=== PATIENT | female | born 1955 | race Caucasian/White ===

== ENCOUNTER → 2016-10-14 | Outpatient (CLI) | payer OTHER | LOC: BMCIMAGING 10:14 | PROVIDERS: ATTEND Orthopaedic Surgery | DX: M25.861 Other specified joint disorders, right knee (principal); M25.561 Pain in right knee ==

== ENCOUNTER → 2017-04-07 | Outpatient (CLI) | payer OTHER | LOC: FIMAGING 14:50 | PROVIDERS: ATTEND Registered Nurse | DX: N63.10 Unspecified lump in the right breast, unspecified quadrant (principal) | CPT/HCPCS: G0204 ==

== ENCOUNTER → 2017-11-16 | Outpatient (CLI) | payer OTHER | LOC: BMCLAB 13:51 | PROVIDERS: ATTEND Physician Assistant | DX: Z47.1 Aftercare following joint replacement surgery (principal); Z96.651 Presence of right artificial knee joint ==

== ENCOUNTER 2018-05-20 16:55 | Emergency (ER) | payer OTHER ==
--- NOTE | 2018-05-20 17:49 | EDPHY ---
H & P Time Seen by Provider: 05/20/18 17:21 HPI/ROS: CHIEF COMPLAINT: Mental health issues HISTORY OF PRESENT ILLNESS: The patient is a 62-year-old female with previously diagnosed schizophrenia and depression. She presents to the emergency department hearing voices and states she is having difficulty "blocking them out." Patient is currently treated by Dr. Taylor Hernandez, psychiatrist. She spoke with her on the phone 2 days ago was started on a "generic form of Abilify". The patient denies suicidal or homicidal ideation. She states she came to the emergency department today to get some medicine to help with the voices. She feels comfortable going home she received more medication. Of note, the patient is not taking Depakote. Patient is taking lithium. REVIEW OF SYSTEMS: 10 systems were reveiwed and are negative with the exception of the elements mentioned in the history of present illness. Past Medical/Surgical History: Includes schizophrenia, depression, hypothyroidism, asthma, GERD, prediabetes Past surgical history: Includes stent placement hysterectomy Social history: Patient does not smoke Smoking Status: Never smoked Physical Exam: GENERAL: Well-appearing, in no acute distress, alert. HEENT: Eyes normal to inspection, normal. NECK: Normal, supple. RESPIRATORY: Clear to auscultation bilaterally, no rales, rhonchi or wheezing. CVS: Regular rate and rhythm, no rubs, murmurs, or gallops. ABDOMEN: Soft, nontender, nondistended, no organomegaly. BACK: Normal to inspection, no CVA tenderness. SKIN: Normal color, no rash, warm, dry. No pallor. EXTREMITIES: No pedal edema, no calf tenderness, no Homans sign or cords, no joint swelling. NEURO/PSYCH: Alert and oriented, normal mood and affect, normal motor sensory exam. No obvious cranial nerve deficit. Constitutional: Initial Vital Signs Temperature (C) 36.8 C 05/20/18 16:57 Heart Rate 107 H 05/20/18 16:57 Respiratory Rate 18 05/20/18 16:57 Blood Pressure 181/107 H 05/20/18 16:57 O2 Sat (%) 94 05/20/18 16:57 O2 Delivery Mode Room Air Allergies/Adverse Reactions: Penicillins Allergy (Intermediate, Verified 05/20/18 16:56) ITCHY, THROAT SWELLS Sulfa (Sulfonamide Antibiotics) Allergy (Intermediate, Verified 05/20/18 16:56) ITCHY RASH iodine Allergy (Mild, Verified 05/20/18 16:56) skin irritation tetracycline Allergy (Mild, Verified 05/20/18 16:56) Diarrhea shellfish derived Allergy (Verified 05/20/18 16:56) MOLDS Allergy (Intermediate, Uncoded 01/21/12 11:29) HIVES, ASTHMA Home Medications: Medication Instructions Recorded ARIPIPRAZOLE [Abilify 20mg] 20 mg PO DAILY 01/29/11 Aspirin [Aspirin 325 mg] 325 mg PO DAILY 01/29/11 BENZTROPINE MESYLATE 1 mg PO BID 01/29/11 CALCIUM CITRATE 600 mg PO BID 01/29/11 Divalproex [Depakote] 500 mg PO HS 01/29/11 Fexofenadine/Pseudoephedrine 1 each PO PRN PRN 01/29/11 [Willa-D 12 Hour Tablet] LORazepam [Ativan (*)] 1 mg PO AD 01/29/11 Levothyroxine [Levothroid, 112 mcg PO DAILY@1000 01/29/11 Synthroid] Ranitidine HCl [Ranitidine HCl 150 0 mg PO DAILY 01/29/11 mg] Omeprazole Magnesium [Prilosec Otc] 20 mg PO DAILY 01/21/12 OLANZapine [Zyprexa] 5 mg PO DAILY #7 tablet 05/20/18 Medical Decision Making ED Course/Re-evaluation: In the emergency department I discussed possible etiologies with the patient. Answered all her questions. I attempted to contact her psychiatrist by phone. 18 15: I am not receive a call back from the psychiatrist. The patient was given Zyprexa 5 mg orally. She will be given a prescription of Zyprexa 5 mg daily x7 days. She will follow up with her psychiatrist at the beginning of the week. Patient was given warnings prior to leaving. She will return with worsening symptoms. Differential Diagnosis: My differential includes but is not limited to psychosis, schizophrenia, bipolar disorder depression, suicidal ideation - Data Points Medications Given: Discontinued Medications Olanzapine (Olanzapine) 5 mg PO ONCE ONE Stop: 05/20/18 17:57 Last Admin: 05/20/18 18:19 Dose: 5 mg Departure - Departure Disposition: Home, Routine, Self-Care Clinical Impression: Auditory hallucinations Condition: Good Instructions: Hallucinations (ED) Additional Instructions: Return with worsening hallucinations, thoughts of wanting to harm yourself or others or any other concerns. Referrals: Philly Sandhu MD [Primary Care Provider] - As per Instructions Taylor Hernandez [Non Staff Provider ()] - 3-4 days, if not improved Prescriptions: OLANZapine [Zyprexa] 5 mg PO DAILY #7 tablet
[2018-05-20] MEDS ORDERED: OLANZapine 5 MG TAB PO ONE (17:56)
[2018-05-20 18:37] VITALS: BP 164/110
== END 2018-05-20 19:03 | disposition home or self-care (01) ==
LOC: EEVIPCON 16:55
DX: R44.0 Auditory hallucinations (principal); F20.9 Schizophrenia, unspecified

== ENCOUNTER 2018-05-21 18:58 | Emergency (ER) | payer OTHER ==
--- NOTE | 2018-05-21 19:23 | EDPHY ---
H & P Stated Complaint: here yesterday for same c/o;"Not any better" "Still delusional " - Personal History Current Tetanus Diphtheria and Acellular Pertussis (TDAP): Yes Tetanus Vaccine Date: >10 YRS - Medical/Surgical History Hx Asthma: Yes Hx Chronic Respiratory Disease: No Hx Diabetes: Yes Hx Cardiac Disease: Yes Hx Renal Disease: No Hx Cirrhosis: No Hx Alcoholism: No Hx HIV/AIDS: No Hx Splenectomy or Spleen Trauma: No Other PMH: depression, schitzophrenia, hypothyroid, asthma, gerd, stent, pre diabetes, hysterectomy - Social History Smoking Status: Never smoked Time Seen by Provider: 05/21/18 19:22 Constitutional: Initial Vital Signs Temperature (C) 36.7 C 05/21/18 19:00 Heart Rate 84 05/21/18 19:00 Respiratory Rate 16 05/21/18 19:00 Blood Pressure 194/108 H 05/21/18 19:00 O2 Sat (%) 97 05/21/18 19:00 O2 Delivery Mode Room Air Allergies/Adverse Reactions: Penicillins Allergy (Intermediate, Verified 05/21/18 19:00) ITCHY, THROAT SWELLS Sulfa (Sulfonamide Antibiotics) Allergy (Intermediate, Verified 05/21/18 19:00) ITCHY RASH iodine Allergy (Mild, Verified 05/21/18 19:00) skin irritation tetracycline Allergy (Mild, Verified 05/21/18 19:00) Diarrhea shellfish derived Allergy (Verified 05/21/18 19:00) MOLDS Allergy (Intermediate, Uncoded 01/21/12 11:29) HIVES, ASTHMA Home Medications: Medication Instructions Recorded ARIPIPRAZOLE [Abilify 20mg] 20 mg PO DAILY 01/29/11 Aspirin [Aspirin 325 mg] 325 mg PO DAILY 01/29/11 BENZTROPINE MESYLATE 1 mg PO BID 01/29/11 CALCIUM CITRATE 600 mg PO BID 01/29/11 Divalproex [Depakote] 500 mg PO HS 01/29/11 Fexofenadine/Pseudoephedrine 1 each PO PRN PRN 01/29/11 [Willa-D 12 Hour Tablet] LORazepam [Ativan (*)] 1 mg PO AD 01/29/11 Levothyroxine [Levothroid, 112 mcg PO DAILY@1000 01/29/11 Synthroid] Ranitidine HCl [Ranitidine HCl 150 0 mg PO DAILY 01/29/11 mg] Omeprazole Magnesium [Prilosec Otc] 20 mg PO DAILY 01/21/12 OLANZapine [Zyprexa] 5 mg PO DAILY #7 tablet 05/20/18 Medical Decision Making ED Course/Re-evaluation: CHIEF COMPLAINT: Depressed and hopeless HISTORY OF PRESENT ILLNESS: 62-year-old female who was here yesterday. Had a discussion with psychiatric team. Is not feeling any better and in fact had a bit of a breakdown yesterday evening after leaving here. She is very depressed and very hopeless. She is not suicidal currently. She is not homicidal. She has had longstanding history of depression and she has suffered a traumatic brain injury years ago which may or may not be contributing. REVIEW OF SYSTEMS: A comprehensive 10 system review of systems is otherwise negative aside from elements mentioned in the history of present illness and medical decision making. PHYSICAL EXAM: General Appearance: Alert, well hydrated, appropriate, and non-toxic appearing. Head: Atraumatic without scalp tenderness or obvious injury Eyes: Pupils equal, round, reactive to light and accommodation, EOMI, no trauma , no injection. Ears: Clear bilaterally, no perforation, normal landmarks Nose: Atraumatic, no rhinorrhea, clear. Throat: There is no erythema or exudates, no lesions, normal tonsils, mucus membranes moist. Neck: Supple, 2+ carotid upstroke, nontender, no lymphadenopathy. Respiratory: No retractions, no distress, no wheezes, and no accessory muscle use. Lungs are clear to auscultation bilaterally. Cardiovascular: Regular rate and rhythm, no murmurs, rubs, or gallops. Bilateral carotid, radial, dorsalis pedis, and posterior tibial pulses intact. Good capillary refill all extremities. Gastrointestinal: Abdomen is soft, nontender, non-distended, no masses, no rebound, no guarding, no peritoneal signs. Musculoskeletal: Normal active ROM of all extremities, atraumatic. Neurological: Alert, appropriate, and interactive. The patient has normal DTRs and non-focal cranial nerves, motor, sensory, and cerebellar exam. Skin: No rashes, good turgor, no nodules on palpation. Past medical history: Depression TBI Past surgical history: Noncontributory Family history: Noncontributory Social history: , employed, does not abuse tobacco drugs or alcohol DIFFERENTIAL DIAGNOSIS: The differential diagnosis for the patient's depression included but was not limited to functional and major depression, situational depression, medication side effect, drugs, and alcohol abuse. MEDICAL DECISION MAKING: Patient is in no acute distress and is hemodynamically stable. We are awaiting psychiatric team's evaluation. Patient has known history of psychiatric disorders and is here for evaluation. (Rory Gonzalez) Patient was signed out to me at change of shift. I spoke with Psychiatric Services. They felt the patient was safe for discharge. They will give her follow-up information. The patient felt comfortable this plan. Prior to receiving the patient discharge paperwork she wanted to be discharged. She left without her paperwork. (Yuli Wise) Departure - Departure Disposition: Home, Routine, Self-Care Clinical Impression: Schizophrenia Qualifiers: Schizophrenia type: unspecified Qualified Code(s): F20.9 - Schizophrenia, unspecified Condition: Good Instructions: Schizophrenia (ED), Hallucinations (ED) Referrals: Taylor Hernandez [Non Staff Provider (MD)] - 1-2 days without fail
[2018-05-21 21:37] VITALS: BP 176/104
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
--- NOTE | 2018-05-21 22:05 | ASMTTCLDSP ---
TLC Discharge Disposition Disposition: Answers: Discharge If Answers: Yes DISCHARGED: Patient/family given suicide hotline info & SAMHSA brochure? Disposition Notes: Notes: Pt will follow up with her psychiatrist on 06/05/17. Pt will also make an appt with her PCP. Discharge Concerns/Recommendations: Notes: In consultation with [facility] ED physician, Yuli Wise MD, concurred that pt does not appear to meet 27-65 criteria requiring psychiatric hospitalization as pt does not appear to be an imminent risk of harm to self/others/gravely disabled due to a mental illness condition. Date Signed: 05/21/2018 10:05 PM Electronically Signed By:Nataly Corona
== END 2018-05-21 22:33 | disposition home or self-care (01) ==
DX: F20.9 Schizophrenia, unspecified (principal)

== ENCOUNTER 2018-05-23 02:51 | Emergency (ER) | payer OTHER ==
[2018-05-23] MEDS ORDERED: NS 1,000 ML IV ONE (03:16)
--- NOTE | 2018-05-23 03:16 | EDPHY ---
H & P Stated Complaint: c/o L lower back pain/nausea/difficult urination starting tonight Time Seen by Provider: 05/23/18 03:16 HPI/ROS: HPI CHIEF COMPLAINT: Trouble urinating, back pain. HISTORY OF PRESENT ILLNESS: 62-year-old female presents to the emergency room with left flank pain. Patient states this started around midnight. It is now 330 in the morning. It is rather severe 8/10 left flank. Does not radiate. Denies abdominal pain chest pain or shortness of breath, denies fever or vomiting. Did have some nausea. Also had urinary urgency. Never had a kidney stone before. Main complaint left CVA pain. Past Medical History: Past medical significant depression, TBI, schizophrenia, cardiac stent, pre diabetes Past Surgical History: No recent surgery Social History: Denies drugs alcohol tobacco. Family History: Noncontributory ROS REVIEW OF SYSTEMS: 10 Systems were reviewed and negative with the exception of the elements mentioned in the history of present illness. Exam Constitutional triage nursing summary reviewed, vital signs reviewed, awake/ alert. Eyes normal conjunctivae and sclera, EOMI, PERRLA. HENT normal inspection, atraumatic, moist mucus membranes, no epistaxis, neck supple/ no meningismus, no raccoon eyes. Respiratory clear to auscultation bilaterally, normal breath sounds, no respiratory distress, no wheezing. Cardiovascular rate normal, regular rhythm, no murmur, no edema, distal pulses normal. Gastrointestinal soft, non-tender, no rebound, no guarding, normal bowel sounds, no distension, no pulsatile mass. Genitourinary mild tender palpation left CVA. Musculoskeletal no midline vertebral tenderness, full range of motion, no calf swelling, no tenderness of extremities, no meningismus, good pulses, neurovascularly intact. Skin pink, warm, & dry, no rash, skin atraumatic. Neurologic awake, alert and oriented x 3, AAOx3, moves all 4 extremities equally, motor intact, sensory intact, CN II-XII intact, normal cerebellar, normal vision, normal speech. Psychiatric normal mood/affect. Heme/Lymph/Immune no lymphadenopathy. Differential diagnosis includes but is not limited to and in no particular order : Hydronephrosis, hydroureter, AAA Bowel obstruction, appendicitis, gallbladder disease, diverticulitis, colitis, enteritis, perforated viscus, gastritis, GERD, esophagitis, urinary tract infection, pyelonephritis, kidney stones Medical Decision Making: Plan for this patient IV establishment IV fluid bolus IV Dilaudid for pain control IV Zofran nausea, CT scan abdomen pelvis without contrast for left flank pain. Urinalysis blood work and re-evaluate. Re-evaluation: CT abd/pelvis W/o: Negative for acute inflammatory process. It Is noted distended abdomen. No evidence of kidney stones. Patient tried to urinate however only able to produce a small amount urine. Bladder scan was performed showed 1100 cc of urine. Herrera catheter is placed and draining over 1100 cc. Urinalysis reviewed shows urinary tract infection with bacteria. Urine culture ordered 1 g Rocephin given here. Keflex prescription. Herrera catheter in place. Recommend close follow-up with urology Patient returns emergency room worsening abdominal pain, fever, vomiting she understands this and comfortable this plan. 0646: Patient re-evaluated this time resting comfortably feels much better after Herrera catheter placement. Good amount urine came out. Plan for antibiotics Keflex and Urology follow-up. Return precautions discussed with the patient. She understands return emergency room develops worsening abdominal pain, fever, vomiting, back pain. Source: Patient - Personal History Tetanus Vaccine Date: >10 YRS - Medical/Surgical History Hx Asthma: Yes Hx Chronic Respiratory Disease: No Hx Diabetes: Yes Hx Cardiac Disease: Yes Hx Renal Disease: No Hx Cirrhosis: No Hx Alcoholism: No Hx HIV/AIDS: No Hx Splenectomy or Spleen Trauma: No Other PMH: depression, schitzophrenia, hypothyroid, asthma, gerd, cardiac stent , pre diabetes, hysterectomy, bilat knee replacement - Social History Smoking Status: Never smoked Constitutional: Initial Vital Signs Temperature (C) 36.4 C 05/23/18 02:55 Heart Rate 76 05/23/18 02:55 Respiratory Rate 16 05/23/18 02:55 Blood Pressure 175/96 H 05/23/18 02:55 O2 Sat (%) 96 05/23/18 02:55 O2 Delivery Mode Room Air Allergies/Adverse Reactions: Penicillins Allergy (Intermediate, Verified 05/23/18 03:00) ITCHY, THROAT SWELLS Sulfa (Sulfonamide Antibiotics) Allergy (Intermediate, Verified 05/23/18 03:00) ITCHY RASH iodine Allergy (Mild, Verified 05/23/18 03:00) skin irritation tetracycline Allergy (Mild, Verified 05/23/18 03:00) Diarrhea shellfish derived Allergy (Verified 05/23/18 03:00) MOLDS Allergy (Intermediate, Uncoded 01/21/12 11:29) HIVES, ASTHMA Home Medications: Medication Instructions Recorded Aspirin [Aspirin 325 mg] 325 mg PO DAILY 01/29/11 Fexofenadine/Pseudoephedrine 1 each PO PRN PRN 01/29/11 [Willa-D 12 Hour Tablet] Levothyroxine [Levothroid, 112 mcg PO DAILY@1000 01/29/11 Synthroid] Ranitidine HCl [Ranitidine HCl 150 0 mg PO DAILY 01/29/11 mg] Omeprazole Magnesium [Prilosec Otc] 20 mg PO DAILY 01/21/12 OLANZapine [Zyprexa] 5 mg PO DAILY #7 tablet 05/20/18 Cephalexin [Keflex] 500 mg PO Q6H #28 cap 05/23/18 Clonidine 05/23/18 [place] Carbonate 05/23/18 Montelukast Sodium 05/23/18 Proair Hfa 05/23/18 Medical Decision Making - Data Points Laboratory Results: Laboratory Results 05/23/18 03:30 05/23/18 03:30 05/23/18 05/23/18 05/23/18 04:30 03:30 03:30 WBC 12.56 10^3/uL H 10^3/uL (3.80-9.50) RBC 4.41 10^6/uL 10^6/uL (4.18-5.33) Hgb 13.4 g/dL g/dL (12.6-16.3) Hct 39.1 % % (38.0-47.0) MCV 88.7 fL fL (81.5-99.8) MCH 30.4 pg pg (27.9-34.1) MCHC 34.3 g/dL g/dL (32.4-36.7) RDW 13.8 % % (11.5-15.2) Plt Count 230 10^3/uL 10^3/uL (150-400) MPV 10.0 fL fL (8.7-11.7) Neut % (Auto) 56.6 % % (39.3-74.2) Lymph % (Auto) 35.2 % % (15.0-45.0) [place] % (Auto) 4.9 % % (4.5-13.0) Eos % (Auto) 2.4 % % (0.6-7.6) Baso % (Auto) 0.6 % % (0.3-1.7) Nucleat RBC Rel Count 0.0 % % (0.0-0.2) Absolute Neuts (auto) 7.11 10^3/uL H 10^3/uL (1.70-6.50) Absolute Lymphs (auto) 4.42 10^3/uL H 10^3/uL (1.00-3.00) Absolute Monos (auto) 0.62 10^3/uL 10^3/uL (0.30-0.80) Absolute Eos (auto) 0.30 10^3/uL 10^3/uL (0.03-0.40) Absolute Basos (auto) 0.07 10^3/uL 10^3/uL (0.02-0.10) Absolute Nucleated RBC 0.00 10^3/uL 10^3/uL (0-0.01) Immature Gran % 0.3 % % (0.0-1.1) Immature Gran # 0.04 10^3/uL 10^3/uL (0.00-0.10) Sodium 137 mEq/L mEq/L (135-145) Potassium 3.4 mEq/L L mEq/L (3.5-5.2) Chloride 106 mEq/L mEq/L (97-110) Carbon Dioxide 22 mEq/l mEq/l (22-31) Anion Gap 9 mEq/L mEq/L (6-14) BUN 15 mg/dL mg/dL (7-23) Creatinine 0.5 mg/dL L mg/dL (0.6-1.0) Estimated GFR > 60 Glucose 126 mg/dL H mg/dL (70-100) Calcium 9.7 mg/dL mg/dL (8.5-10.4) Total Bilirubin 0.4 mg/dL mg/dL (0.1-1.4) Conjugated Bilirubin 0.3 mg/dL mg/dL (0.0-0.5) Unconjugated Bilirubin 0.1 mg/dL mg/dL (0.0-1.1) AST 23 IU/L IU/L (14-46) ALT 38 IU/L IU/L (9-52) Alkaline Phosphatase 108 IU/L IU/L (38-126) Total Protein 7.2 g/dL g/dL (6.3-8.2) Albumin 4.5 g/dL g/dL (3.5-5.0) Lipase 90 IU/L IU/L (23-300) Urine Color PALE YELLOW Urine Appearance HAZY Urine pH 6.0 (5.0-7.5) Ur Specific [place]ilight 1.003 (1.002-1.030) Urine Protein NEGATIVE (NEGATIVE) Urine Ketones NEGATIVE (NEGATIVE) Urine Blood NEGATIVE (NEGATIVE) Urine Nitrate NEGATIVE (NEGATIVE) Urine Bilirubin NEGATIVE (NEGATIVE) Urine Urobilinogen NEGATIVE EU EU (0.2-1.0) Ur Leukocyte Esterase TRACE H (NEGATIVE) Urine RBC 1-3 /hpf /hpf (0-3) Urine WBC 3-5 /hpf H /hpf (0-3) Ur Epithelial Cells TRACE /lpf /lpf (NONE-1+) Urine Bacteria 3+ /hpf H /hpf (NONE SEEN) Urine Mucus TRACE /lpf /lpf (NONE-1+) Urine Glucose NEGATIVE (NEGATIVE) Medications Given: Discontinued Medications Hydromorphone HCl (Dilaudid) 0.5 mg IVP EDNOW ONE Stop: 05/23/18 03:24 Last Admin: 05/23/18 03:29 Dose: 0.5 mg Sodium Chloride (Ns) 1,000 mls @ 0 mls/hr IV EDNOW ONE; Wide Open PRN Reason: Protocol Stop: 05/23/18 03:17 Last Admin: 05/23/18 03:30 Dose: 1,000 mls Ceftriaxone Sodium/Dextrose (Rocephin 1 Gm (Premix)) 50 mls @ 100 mls/hr IV EDNOW ONE PRN Reason: Protocol Stop: 05/23/18 06:05 Last Admin: 05/23/18 06:00 Dose: 50 mls Ondansetron HCl (Zofran) 4 mg IVP EDNOW ONE Stop: 05/23/18 03:24 Last Admin: 05/23/18 03:29 Dose: 4 mg Departure - Departure Disposition: Home, Routine, Self-Care Clinical Impression: Urinary retention Condition: Good Instructions: Urinary Tract Infection in Women (ED), Acute Urinary Retention in Women (ED) Additional Instructions: 1. Drink lots of fluids stay well-hydrated 2. Please follow up with Urology. Referrals: Philly Sandhu MD [Primary Care Provider] - As per Instructions Aneudy Garcias MD [Medical Doctor] - As per Instructions Prescriptions: Cephalexin [Keflex] 500 mg PO Q6H #28 cap
[2018-05-23] MEDS ORDERED: ONDANSETRON 4 MG/2 ML VIAL IVP ONE (03:23)
[2018-05-23] MEDS ORDERED: HYDROmorphONE/DILAUDID 2 MG/ML INJ IVP ONE (03:23)
[2018-05-23 03:49] LABS: PLATELET COUNT 230 10^3/uL (150-400)
[2018-05-23 07:12] VITALS: BP 132/81
== END 2018-05-23 07:11 | disposition home or self-care (01) ==
DX: R33.9 Retention of urine, unspecified (principal); E86.9 Volume depletion, unspecified; K80.20 Calculus of gallbladder without cholecystitis without obstruction; K59.00 Constipation, unspecified; R73.03 Prediabetes; F32.9 Major depressive disorder, single episode, unspecified
CPT/HCPCS: 96365; J0696; J1170; J2405

== ENCOUNTER 2018-05-23 12:18 | Emergency (ER) | payer BC, OTHER ==
--- NOTE | 2018-05-23 13:59 | EDPHY ---
H & P Time Seen by Provider: 05/23/18 13:36 HPI/ROS: CHIEF COMPLAINT: [ ] HISTORY OF PRESENT ILLNESS: [ ] [PRIMARY CARE PROVIDER:][ ] REVIEW OF SYSTEMS: [10 systems reviewed and negative with the exception of the elements mentioned in the history of present illness] [Constitutional: No fever, no chills. Eyes: No visual complaint ENT: No sore throat. Cardiovascular: No chest pain, no palpitations. Respiratory: No cough, no shortness of breath. Gastrointestinal: No abdominal pain, no vomiting. Genitourinary: No urinary complaints Musculoskeletal: No back pain. Skin: No rashes. No lesions. Neurological: No headache. Aside from elements discussed in the HPI, a comprehensive 10 point review of systems was reviewed and is negative.] [PAST MEDICAL & SURGICAL HISTORY:] [ No pertinent medical or surgical history ] SOCIAL HISTORY:[ ] [FAMILY HISTORY:][ No pertinent family history ] PHYSICAL EXAM (Prior to examination, patient consented to physical exam, hands were washed and my usual and customary physical exam procedures followed) 1) GENERAL: [Well-developed, well-nourished, alert and oriented. Appears to be in no acute distress.] 2) HEAD: [Normocephalic, atraumatic] 3) HEENT: [Pupils equal, round, reactive to light bilaterally. Sclera anicteric. ] [Nasopharynx, oropharynx, clear, no lesions. ][Moist][Dry] mucous membranes. [Ears bilaterally with normal tympanic membranes.] 4) NECK: [Full range of motion, no meningeal signs.] 5) LUNGS: [Clear auscultation bilaterally, no wheezes, no rhonchi, no retractions.] 6) HEART: [Regular rate and rhythm, no murmur, no heave, no gallop.] 7) ABDOMEN: [No guarding, no rebound, no focal tenderness, negative McBurney's, negative Moreno's, negative Rovsing's, negative peritoneal sign], 8) MUSCULOSKELETAL: [Moving all extremities, no focal areas of tenderness, no obvious trauma. No peripheral edema or discoloration.] 9) BACK: [No CVA tenderness, no midline vertebral tenderness, no fluctuance, no step-off, no obvious trauma, no visual or palpable abnormality.] 10) SKIN: [No rash, no petechiae.] [11) Psychiatric: Patient is oriented X 3, there is no agitation.] DIFFERENTIAL DIAGNOSIS: [ ] Smoking Status: Never smoked Constitutional: Initial Vital Signs Temperature (C) 36.8 C 05/23/18 12:25 Heart Rate 89 05/23/18 12:25 Respiratory Rate 16 05/23/18 12:25 Blood Pressure 190/90 H 05/23/18 12:25 O2 Sat (%) 97 05/23/18 12:25 O2 Delivery Mode Room Air Allergies/Adverse Reactions: Penicillins Allergy (Intermediate, Verified 05/23/18 03:00) ITCHY, THROAT SWELLS Sulfa (Sulfonamide Antibiotics) Allergy (Intermediate, Verified 05/23/18 03:00) ITCHY RASH iodine Allergy (Mild, Verified 05/23/18 03:00) skin irritation tetracycline Allergy (Mild, Verified 05/23/18 03:00) Diarrhea shellfish derived Allergy (Verified 05/23/18 03:00) MOLDS Allergy (Intermediate, Uncoded 01/21/12 11:29) HIVES, ASTHMA Home Medications: Medication Instructions Recorded Aspirin [Aspirin 325 mg] 325 mg PO DAILY 01/29/11 Fexofenadine/Pseudoephedrine 1 each PO PRN PRN 01/29/11 [Willa-D 12 Hour Tablet] Levothyroxine [Levothroid, 112 mcg PO DAILY@1000 01/29/11 Synthroid] Ranitidine HCl [Ranitidine HCl 150 0 mg PO DAILY 01/29/11 mg] Omeprazole Magnesium [Prilosec Otc] 20 mg PO DAILY 01/21/12 OLANZapine [Zyprexa] 5 mg PO DAILY #7 tablet 05/20/18 Cephalexin [Keflex] 500 mg PO Q6H #28 cap 05/23/18 Clonidine 05/23/18 [place] Carbonate 05/23/18 Montelukast Sodium 05/23/18 Proair Hfa 05/23/18 MDM/Departure - Depart Referrals: Philly Sandhu MD [Primary Care Provider] - As per Instructions
--- NOTE | 2018-05-23 14:03 | EDPHY ---
H & P Stated Complaint: sensation of "warm water " pouring over head @ 1 hr ago-- started on zypre - Personal History Tetanus Vaccine Date: >10 YRS - Medical/Surgical History Hx Asthma: Yes Hx Chronic Respiratory Disease: No Hx Diabetes: Yes Hx Cardiac Disease: Yes Hx Renal Disease: No Hx Cirrhosis: No Hx Alcoholism: No Hx HIV/AIDS: No Hx Splenectomy or Spleen Trauma: No Other PMH: depression, schitzophrenia, hypothyroid, asthma, gerd, cardiac stent , pre diabetes, hysterectomy, bilat knee replacement - Social History Smoking Status: Never smoked Time Seen by Provider: 05/23/18 13:36 HPI/ROS: CHIEF COMPLAINT: "It feels like somebody poured hot water on my head" HISTORY OF PRESENT ILLNESS: 62-year-old female via private vehicle. Patient history TBI, schizophrenia, depression, was seen the ER earlier today for urinary retention, back pain, had an unremarkable CT scan, Herrera catheter placed after bladder scan revealed 1100 cc of urine. She returns to the ER stating that approximately 11:30 a.m. Today while she was standing she felt as if somebody was " pouring hot water over my head". This is not described as headache. No neuro deficits. However she is primarily concerned that she may have experienced CVA. No gait instability. No slurred speech. No diplopia. No dysphagia. REVIEW OF SYSTEMS: 10 systems reviewed and negative with the exception of the elements mentioned in the history of present illness PAST MEDICAL & SURGICAL HISTORY: Depression. Traumatic brain injury. Schizophrenia. SOCIAL HISTORY: . No drug use. No tobacco or alcohol use. PHYSICAL EXAM (Prior to examination, patient consented to physical exam, hands were washed and my usual and customary physical exam procedures followed) 1) GENERAL: Well-developed, well-nourished, alert and oriented. Appears to be in no acute distress. 2) HEAD: Normocephalic, atraumatic 3) HEENT: Pupils equal, round, reactive to light bilaterally. Sclera anicteric. Nasopharynx, oropharynx, clear, no lesions. MoistDry mucous membranes. Ears bilaterally with normal tympanic membranes. 4) NECK: Full range of motion, no meningeal signs. 5) LUNGS: Clear auscultation bilaterally, no wheezes, no rhonchi, no retractions. 6) HEART: Regular rate and rhythm, no murmur, no heave, no gallop. 7) ABDOMEN: No guarding, no rebound, no focal tenderness, negative McBurney's, negative Moreno's, negative Rovsing's, negative peritoneal sign, 8) MUSCULOSKELETAL: Moving all extremities, no focal areas of tenderness, no obvious trauma. No peripheral edema or discoloration. 9) BACK: No CVA tenderness, no midline vertebral tenderness, no fluctuance, no step-off, no obvious trauma, no visual or palpable abnormality. 10) SKIN: No rash, no petechiae. 11) Psychiatric: Patient is oriented X 3, there is no agitation. 12) NEURO: Awake, alert, and oriented to person, place and time. Answers questions appropriately. There were no obvious focal neurologic abnormalities. No cerebellar dysfunction. Cranial nerves 2 through to 12 intact. Normal steady gait. Upper and lower extremities bilaterally with strength 5 / 5, reflexes 2+. DIFFERENTIAL DIAGNOSIS: In no particular order, including but not limited to subarachnoid hemorrhage, migraine headache, tension headache and infectious causes such as meningitis, pharyngitis and sinusitis. The patient understands that this diagnosis is provisional and can never be 100% accurate. Usual and customary warnings were given concerning the clinical impression and all the patient's questions were answered. The patient was instructed to return to the emergency department should her symptoms worsen or return, or develop any new symptoms, otherwise to followup as directed in discharge instructions. This is a partial list of diagnoses considered. These considerations are based on history, physical exam, past history and reassessment. (Madyson Reece) Constitutional: Initial Vital Signs Temperature (C) 36.8 C 05/23/18 12:25 Heart Rate 89 05/23/18 12:25 Respiratory Rate 16 05/23/18 12:25 Blood Pressure 190/90 H 05/23/18 12:25 O2 Sat (%) 97 05/23/18 12:25 O2 Delivery Mode Room Air Allergies/Adverse Reactions: Penicillins Allergy (Intermediate, Verified 05/23/18 03:00) ITCHY, THROAT SWELLS Sulfa (Sulfonamide Antibiotics) Allergy (Intermediate, Verified 05/23/18 03:00) ITCHY RASH iodine Allergy (Mild, Verified 05/23/18 03:00) skin irritation tetracycline Allergy (Mild, Verified 05/23/18 03:00) Diarrhea shellfish derived Allergy (Verified 05/23/18 03:00) MOLDS Allergy (Intermediate, Uncoded 01/21/12 11:29) HIVES, ASTHMA Home Medications: Medication Instructions Recorded Aspirin [Aspirin 325 mg] 325 mg PO DAILY 01/29/11 Fexofenadine/Pseudoephedrine 1 each PO PRN PRN 01/29/11 [Willa-D 12 Hour Tablet] Levothyroxine [Levothroid, 112 mcg PO DAILY@1000 01/29/11 Synthroid] Ranitidine HCl [Ranitidine HCl 150 0 mg PO DAILY 01/29/11 mg] Omeprazole Magnesium [Prilosec Otc] 20 mg PO DAILY 01/21/12 OLANZapine [Zyprexa] 5 mg PO DAILY #7 tablet 05/20/18 Cephalexin [Keflex] 500 mg PO Q6H #28 cap 05/23/18 Clonidine 05/23/18 [place] Carbonate 05/23/18 Montelukast Sodium 05/23/18 Proair Hfa 05/23/18 Medical Decision Making ED Course/Re-evaluation: The patient was evaluated and managed by the physician's first assistant manager. My cosignature indicates that I reviewed the chart and I agree with the findings and plan of care as documented. I am the secondary supervising physician. ( Yuli Wise) 3:13 p.m.: Patient was re-evaluated, discussed her negative CT imaging. She remains with a nonfocal exam. She does note continued auditory hallucinations that sound like people are having conversations however denies self-injurious thoughts, suicidal ideation, homicidal ideation. I think the patient can be discharged. Given my usual customary neurologic precautions instructions. ( Madyson Reece) Departure - Departure Disposition: Home, Routine, Self-Care Clinical Impression: Headache Qualifiers: Headache type: unspecified Headache chronicity pattern: acute headache Intractability: not intractable Qualified Code(s): R51 - Headache Condition: Good Instructions: Acute Headache (ED) Additional Instructions: RETURN TO THE ED IMMEDIATELY IF YOUR HEADACHE WORSENS, IF YOU DEVELOP A FEVER, NECK PAIN OR NECK STIFFNESS, OR IF YOU BECOME CONFUSED OR ABNORMALLY DROWSY. Referrals: Philly Sandhu MD [Primary Care Provider] - 1-2 days without fail NIH Stroke Scale Date of Exam: 05/23/18 Time of Exam: 14:02 Level of Consciousness: Alert LOC Questions: Answers Both Best Gaze: Normal Visual: No Visual Loss Facial Palsy: Normal Motor Arm-Left: No Drift Motor Arm-Right: No Drift Motor Leg-Left: No Drift Motor Leg-Right: No Drift Limb Ataxis: Absent Sensory: Normal Best Language: No Aphasia Dysarthria: Normal Extinction and Inattention (Neglect): No Abnormality NIH Scale Score: 0
[2018-05-23 15:31] VITALS: BP 163/104
== END 2018-05-23 15:31 | disposition home or self-care (01) ==
DX: R51 Headache (principal)

== ENCOUNTER → 2018-05-24 | Outpatient (CLI) | payer BC | LOC: GIMAGING 10:10 → EDSTATUS 16:03 | PROVIDERS: ATTEND Family Medicine | DX: M50.321 Other cervical disc degeneration at C4-C5 level (principal); M25.78 Osteophyte, vertebrae | CPT/HCPCS: 72040-PO ==

== ENCOUNTER → 2018-10-06 | Outpatient (CLI) | payer OTHER | LOC: GIMAGING 14:53 → EDSTATUS 19:34 | PROVIDERS: ATTEND Family Medicine | DX: M51.36 Other intervertebral disc degeneration, lumbar region (principal); M43.16 Spondylolisthesis, lumbar region | CPT/HCPCS: 72100-PO ==